=== PATIENT | female | born 1990 | race African-American/Black ===

== ENCOUNTER 2018-04-14 11:15 | Emergency (ER) | payer OTHER ==
[~2018-04-14] VITALS: Ht 157.5 cm; Wt 91.2 kg
[2018-04-14 11:15] VITALS: BP 140/108
[2018-04-14] MEDS ORDERED: KETOROLAC TROMETHAMINE INJ 30 MG/ML VIAL ONE (12:21)
[2018-04-14] MEDS ORDERED: KETOROLAC TROMETHAMINE INJ 60 MG/2 ML VIAL IM ONE (12:30)
== END 2018-04-14 12:24 | disposition home or self-care (01) ==
LOC: ER 11:17
DX: S39.012A Strain of muscle, fascia and tendon of lower back, initial encounter (principal); X50.0XXA Overexertion from strenuous movement or load, initial encounter; Y93.89 Activity, other specified; Y92.89 Other specified places as the place of occurrence of the external cause; Y99.0 Civilian activity done for income or pay
CPT/HCPCS: A4606; J1885; Z7610